=== PATIENT | male | born 1985 | race Caucasian/White ===

== ENCOUNTER 2024-08-30 07:10 | Emergency (ER) | payer SELFPAY ==
[2024-08-30 07:18] VITALS: BMI 27.1
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
[2024-08-30 07:41] VITALS: BP 139/85
[2024-08-30 10:10] LABS: Amphetamines Negative (Negative); Barbiturates Negative (Negative); Benzodiazepines Negative (Negative); Buprenorphine Negative (Negative); Cocaine Negative (Negative); Marijuana Positive (Negative); Methadone Negative (Negative); Methamphetamines Negative (Negative)
[2024-08-30 10:11] LABS: Opiates Negative (Negative); Phencyclidine Negative (Negative); Tricyclic Antidepressants Negative (Negative)
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
[2024-08-30 12:45] VITALS: BP 133/86
== END 2024-08-30 14:00 ==
LOC: EMR 07:10
PROVIDERS: CONSULT PHYSICIAN Psychiatry & Neurology Psychiatry; EMERGENCY PHYSICIAN Emergency Medicine
DX: F91.9 Conduct disorder, unspecified (principal); Z56.89 Other problems related to employment
CPT/HCPCS: 99285; 80306